=== PATIENT | female | born 1950 | race Caucasian/White ===

== ENCOUNTER 2017-12-22 09:01 | Day surgery (SDC) | payer OTHER ==
[2017-12-22] MEDS ORDERED: CEFAZOLIN 2 GM/50 ML (PMX) 50 ML IVPB (12:00)
[2017-12-22] MEDS ORDERED: SOD CHLORIDE 0.9% 1,000 ML IV (12:00)
== END 2017-12-22 13:15 | disposition home or self-care (01) ==
LOC: SDS 09:01
DX: K80.20 Calculus of gallbladder without cholecystitis without obstruction (principal); Z53.29 Procedure and treatment not carried out because of patient's decision for other reasons